=== PATIENT | male | born 1955 | race Caucasian/White ===

== ENCOUNTER → 2022-04-25 | Outpatient (CLI) | payer MEDICARE, OTHER ==
--- NOTE | 2022-04-25 20:02 | Diagnostic Imaging Report ---
INDICATION: Right shoulder pain. Time of Exam: 3:12 PM Two views of the right humerus demonstrate normal alignment at the shoulder and elbow. The humerus appears intact. No fractures are seen. IMPRESSION: No acute abnormality is detected. Dictated by: Dictated on workstation # [id number]
--- NOTE | 2022-04-25 20:06 | Diagnostic Imaging Report ---
INDICATION: Acute right shoulder pain. Time of Exam: 3:09 PM Two views of the right shoulder were obtained. Glenohumeral and acromioclavicular alignment are normal. Acromiohumeral space is normal. There does appear to be a fracture involving the tip of the scapula best seen on the scapular Y view. However, this appears to be fairly well corticated and may be old. Clinical correlation is recommended to prior injury. IMPRESSION: Age-indeterminate fracture involving tip of the scapula, perhaps old. Clinical correlation to prior injury is recommended. If further imaging is needed, CT through the right shoulder could be performed for further evaluation. The study is otherwise unremarkable. Dictated by: Dictated on workstation # [id number]
== END ==
LOC: RAD FS 14:47
PROVIDERS: ATTEND Family Medicine
DX: S42.101A Fracture of unspecified part of scapula, right shoulder, initial encounter for closed fracture (principal); X58.XXXA Exposure to other specified factors, initial encounter; M25.512 Pain in left shoulder
CPT/HCPCS: 73030; 73060

== ENCOUNTER → 2022-04-28 | Outpatient (CLI) | payer MEDICARE, OTHER ==
--- NOTE | 2022-04-28 10:25 | Diagnostic Imaging Report ---
INDICATION: Right shoulder pain. Comparison with 04/25/2022. Axillary view shows good alignment of the glenohumeral joint. Articulating surfaces are smooth. The coracoid is intact. IMPRESSION: Normal axillary view Dictated by: Dictated on workstation # [id number]
== END ==
LOC: RAD FS 09:47
PROVIDERS: ATTEND Nurse Practitioner
DX: S43.081A Other subluxation of right shoulder joint, initial encounter (principal); X58.XXXA Exposure to other specified factors, initial encounter; M75.121 Complete rotator cuff tear or rupture of right shoulder, not specified as traumatic
CPT/HCPCS: 73020